=== PATIENT | female | born 1970 | race Caucasian/White ===

== ENCOUNTER 2023-06-15 12:25 | Outpatient (AMB) | payer OTHER, SELFPAY ==
--- NOTE | 2023-06-15 12:51 | AM.OFFWIN_ITS ---
Intake Vital Signs 06/15/23 13:39 Height 5 ft 4 in Weight 141 lb 8 oz BMI 24.3 BP 142/80 H Blood Pressure Location Rt brachial Position Sitting Pulse 78 Pulse Source Pulse Oximeter Pulse Oximetry (%) 98 Oxygen Delivery Method Room Air Intake Visit Reasons: [employer]/sob and cough(lobby masked) Intake Note: pt is here today for sob and cough started post COVID. Pt states she had covid last week and has had fevers on and off. Patient Tobacco Use Status: Never used Tobacco Allergies azithromycin Adverse Reaction (Intermediate, Verified 06/15/23 13:40) GI lisinopril Adverse Reaction (Intermediate, Verified 06/15/23 13:40) Cough Do you need a note to return to daycare/school/sports/work: Yes HPI HPI Comments History of Present Illness Details Patient is a 52-year-old female in today for a sick visit. Patient states that 10 days ago she tested positive for COVID, she has experienced fevers and chills, extensive coughing with sputum, sore throat headache. She has use some [id number] medications with little effect. She states she was given fluticasone 1 week ago which helped with the postnasal drip, however she still feels wheezing still has a cough. She has a past medical history significant for hypertension. Works as a nurse, positive for sick contacts. She denies chest pain, shortness a breath, numbness, dizziness, nausea, vomiting, diarrhea. [facility] Social History Patient Tobacco Use Status: Never used Tobacco Review of Systems Const All systems reviewed & are unremarkable except as noted in HPI and below Reports headache(s) ENT Denies dizziness, Denies otalgia, Reports headache(s), Reports post nasal drip, Reports sinus pressure and Reports sore throat Card Denies chest pain and Denies dyspnea Resp Reports chest congestion, Reports cough and Denies dyspnea GI Denies abdominal pain, Denies constipation, Denies diarrhea and Denies nausea Neuro Denies dizziness and Reports headache(s) Physical Exam Vital Signs: Last Vital Signs Pulse 78 06/15/23 13:39 BP 142/80 H 06/15/23 13:39 Pulse Ox 98 06/15/23 13:39 Oxygen Delivery Method Room Air 06/15/23 13:39 BMI result Body Mass Index 24.3 Const Other: Appearance: Alert.? Oriented X3.? No acute distress.? Head: Normocephalic, atraumatic. Eyes: Pupils equal, round and reactive to light.? ENT: Pharynx cobblestone, + for post nasal drip. Septum midline. TM intact and pearly muro. Neck: Normal inspection.? Neck supple.?Full ROM. CVS: Normal heart rate and rhythm.? Pulses normal.? Respiratory: No respiratory distress.? Slight wheeze upper lobes. Neuro: Oriented X 3.? No motor deficit.? No sensory deficit. CN 2-12 intact Assessment & Plan Assessment & Plan (1) Upper respiratory infection: Comment: Patient had a chest x-ray. Upper respiratory swab. Will order prednisone, benzonatate, and albuterol sulfate to be taken as directed. Patient has been educated on signs of worsening symptoms and when to report back to the walk-in clinic or when to present to the ED. patient states she understands Code(s): J06.9 - Acute upper respiratory infection, unspecified Qualifiers: URI type: unspecified URI Qualified Code(s): J06.9 - Acute upper respiratory infection, unspecified Plan: Take your medications as prescribed. If you were prescribed antibiotics today, it is important that you take your medication to their entirety, do not skip any doses, do not finish them early. Follow-up with your primary care provider this week. Return to the emergency department with new or worsening symptoms. Such as fevers, chills, chest pain, shortness of breath, nausea, vomiting, dizziness, headache, vision changes, lethargy In case of emergency call 911 Plan Follow-up with PCP. Orders: Orders SARS-CoV2/FLU/RSV Today J06.9 - Acute upper respiratory infection, unspecified XR chest 2V Today R06.02 - Shortness of breath Coding Level of Care Code New Pt Level 4 (14298) Diagnoses Upper respiratory tract infection, unspecified type J06.9 URI type: unspecified URI Time Spent (min) 25
[2023-06-15 13:39] VITALS: BP 142/80; PULSE 78; O2SAT 98; BMI 24.3
== END 2023-06-15 14:21 | disposition home or self-care (01) ==
PROVIDERS: Visit Provider Nurse Practitioner Primary Care
DX: J06.9 Acute upper respiratory infection, unspecified (principal)
CPT/HCPCS: 99204

== ENCOUNTER 2023-06-15 13:51 | Outpatient (REF) | payer OTHER, SELFPAY ==
--- NOTE | ~2023-06-15 | XR_ITS ---
EXAMINATION: XR CHEST CLINICAL INFORMATION: Shortness of breath COMPARISON: None available. TECHNIQUE: 2 views of the chest were obtained. FINDINGS: Minimal biapical pleural-parenchymal scarring. Otherwise clear lungs. No pleural effusion or pneumothorax. Normal heart size and mediastinal contours. XR/XR chest 2V IMPRESSION: No acute cardiopulmonary abnormality.
[2023-06-15 17:34] LABS: Influenza A PCR NEGATIVE (Negative); Influenza B PCR NEGATIVE (Negative); Resp Syncy Virus RNA Qual PCR NEGATIVE (Negative); SARS COV2 PCR INHOUSE NEGATIVE (Negative)
== END 2023-06-15 13:52 | disposition home or self-care (01) ==
LOC: HO.HMGCX 13:51
PROVIDERS: PCP Internal Medicine; Visit Provider Nurse Practitioner Primary Care
DX: Z11.52 Encounter for screening for COVID-19 (principal); R06.02 Shortness of breath; J06.9 Acute upper respiratory infection, unspecified
CPT/HCPCS: 0241U; 71046

== ENCOUNTER → 2025-02-15 15:57 | Outpatient (BNVA) | payer SELFPAY | PROVIDERS: PCP Internal Medicine | DX: Z02.89 Encounter for other administrative examinations (principal) ==